=== PATIENT | male | born 1985 | race Two or more races ===

== ENCOUNTER 2024-03-29 08:38 | Day surgery (SDC) | payer OTHER ==
[~2024-03-29] VITALS: Ht 182.9 cm; Wt 104.3 kg
[2024-03-29] MEDS ORDERED: HYDROGEN PEROXIDE 118 ML SOLUTION TOP ONE (14:00)
[2024-03-29] MEDS ORDERED: METRONIDAZOLE/SODIUM CHLORIDE 500 MG/100 ML PIGGYBACK IV ONE (14:00)
[2024-03-29] MEDS ORDERED: HEMOSTATIC MATRIX 1 KIT KIT TOP ONE (14:00)
[2024-03-29] MEDS ORDERED: CEFTRIAXONE SODIUM 2,000 MG VIAL IV ONE (14:00)
[2024-03-29] MEDS ORDERED: POVIDONE-IODINE 118 ML BOTT TOP ONE (14:00)
[2024-03-29] MEDS ORDERED: DIBUCAINE 15 GM OINT..GM. TUBE RECTAL ONE (14:00)
== END 2024-03-29 20:10 | disposition home or self-care (01) ==
LOC: CIR.AMB 08:38
PROVIDERS: ATTEND Colon & Rectal Surgery
DX: K60.3 Anal fistula (principal); L92.9 Granulomatous disorder of the skin and subcutaneous tissue, unspecified